=== PATIENT | male | born 1975 | race Two or more races ===

== ENCOUNTER → 2018-08-28 | Outpatient (CLI) | payer OTHER ==
--- NOTE | 2018-09-03 14:39 | Diagnostic Imaging Report ---
APPROVED REPORT CPT Code: 75081 Present Symptoms Comments: Hx of DVT Eliquis RIGHT LEG: Venous imaging reveals recanalized chronic thrombus in the superficial femoral vein. Large collateral vein noted anterior to the superficial femoral artery. The remainder of the deep venous system is within normal limits. There is no evidence of thrombus in the common femoral, popliteal or calf veins. The greater saphenous vein is also within normal limits. Doppler indicates normal spontaneous flow within these segments. Incidental finding: Enlarged lymph node noted at the right superficial femoral vein level, measuring (1.6 cm x 0.7 cm) LEFT LEG: Venous imaging reveals a patent deep venous system. There is no evidence of thrombus within the femoral, popliteal or tibial segments. The greater saphenous vein is also within normal limits. Doppler indicates normal spontaneous flow within these segments. There is no evidence of acute deep vein thrombosis.
== END | disposition home or self-care (01) ==
LOC: VAS 08:58
DX: Z86.718 Personal history of other venous thrombosis and embolism (principal)
CPT/HCPCS: 93970

== ENCOUNTER 2018-11-18 09:00 | Outpatient (CLI) | payer OTHER | END 2018-11-18 11:00 | disposition home or self-care (01) | LOC: VAS 09:00 | DX: I82.409 Acute embolism and thrombosis of unspecified deep veins of unspecified lower extremity (principal) | CPT/HCPCS: 93926 ==